=== PATIENT | male | born 1995 | race Caucasian/White ===

== ENCOUNTER 2021-07-24 21:05 | Emergency (ER) | payer MEDICAID ==
[~2021-07-24] VITALS: Ht 165.1 cm; Wt 83.0 kg
--- NOTE | 2021-07-24 21:05 | NUR ---
PT BIB [facility], PREBOOK. TAKEN TO CHAIR A
[2021-07-24 21:28] VITALS: BP 129/82
--- NOTE | 2021-07-24 22:16 | NUR ---
PT RETURN FROM RADIOLOGY
[2021-07-24 23:23] VITALS: BP 104/61
--- NOTE | 2021-07-24 23:23 | NUR ---
Patient discharged with v/s stable. Written and verbal after care instructions given and explained. Patient verbalized understanding. In custody by [facility]. All questions addressed prior to discharge. Advised to follow up with PMD.
== END 2021-07-24 23:23 ==
LOC: MED 21:05
DX: Z02.89 Encounter for other administrative examinations (principal); V89.2XXA Person injured in unspecified motor-vehicle accident, traffic, initial encounter; Y93.89 Activity, other specified; Y92.410 Unspecified street and highway as the place of occurrence of the external cause; Y99.8 Other external cause status
CPT/HCPCS: 71045; 99283